=== PATIENT | male | born 1955 | race African-American/Black ===

== ENCOUNTER 2022-06-09 13:36 | Emergency (ER) | payer OTHER ==
[~2022-06-09] VITALS: Ht 188 cm; Wt 123.0 kg
[2022-06-09 14:31] LABS: Basophils # (auto) 0.1 10 ^3/uL (0-0.2); Basophils % (auto) 0.7 % (0.0-2.0); Eosinophils # (auto) 0 10 ^3/uL (0-0.8); Eosinophils % (auto) 0.1 % (0.0-7.0); Hematocrit 40.4 % (41.0-53.0); Hemoglobin 13.7 g/dL (13.5-17.5); Lymphocytes # (auto) 0.8 10 ^3/uL (0.4-5.4); Lymphocytes % (auto) 6.3 % (10.0-50.0); Mean Corpuscular Hemoglobin 32.3 pg (28.0-32.0); Mean Corpuscular Volume 95.1 fL (80.0-100.0); Monocytes # (auto) 0.7 10 ^3/uL (0-1.3); Monocytes % (auto) 5.2 % (0.0-12.0); Neutrophils # (auto) 11.6 10 ^3/uL (1.6-8.6); Neutrophils % (auto) 87.7 % (37.0-80.0); Nucleated Red Blood Cells % 0.1 %; Red Blood Cells 4.25 10^6/uL (4.5-5.90); Red Cell Distribution Width 13.7 % (11.8-14.3); White Blood Cell 13.3 10^3/uL (4.4-10.8)
[2022-06-09 14:44] LABS: Albumin 2.9 g/dL (3.4-5.0); BUN/Creatinine Ratio 12.1; Calcium 8.3 mg/dL (8.5-10.1); Potassium 3.9 mmol/L (3.5-5.1)
[2022-06-09 14:47] LABS: Total Protein 7.3 g/dL (6.4-8.2)
[2022-06-09] MEDS ORDERED: MORPHINE SULFATE 4 MG/ML SYR/VIAL IV ONE (17:45)
[2022-06-09] MEDS ORDERED: METOCLOPRAMIDE HCL 5MG/ml INJ 2ml VIAL IV ONE (17:45)
[2022-06-09] MEDS ORDERED: SODIUM CHLORIDE 0.9% 1,000 ML IV ONE (17:45)
[2022-06-09 18:43] LABS: Magnesium 2.6 mg/dL (1.6-2.6)
[2022-06-09 21:24] LABS: Urine Bacteria MOD /hpf (None Seen); Urine Blood Negative /uL (Negative); Urine Specific Gravity 1.017 (1.001-1.035); Urine WBC 32 /hpf (0 - 3)
[2022-06-09] MEDS ORDERED: ACETAMINOPHEN 325 MG TAB PO ONE (21:45)
[2022-06-10] MEDS ORDERED: PIPERACILLIN-TAZOB 3.375GM 100 ML IV ONE (00:45)
[2022-06-10 05:51] VITALS: BP 125/72
== END 2022-06-10 05:51 | disposition short-term general hospital (02) ==
LOC: EDBD 13:36 → ER 13:36
DX: R10.30 Lower abdominal pain, unspecified (principal); G12.21 Amyotrophic lateral sclerosis; N18.9 Chronic kidney disease, unspecified; Z20.822 Contact with and (suspected) exposure to COVID-19
CPT/HCPCS: 36415; 71045; 74176; 80053; 81001; 83605; 83690; 83735; 84484; 85025; 87040; 87426; 93005; 96361; 96365; 96366; 96375; 99285; J2270; J2765; J7030; J2543

== ENCOUNTER → 2023-12-15 | Emergency (ER) | payer OTHER ==
[~2023-12-15] VITALS: Ht 188 cm; Wt 127.0 kg
[2023-12-15 07:30] VITALS: PULSE 56; O2SAT 93
[2023-12-15 08:09] LABS: Urine Bacteria MOD /hpf (None Seen); Urine Blood 3+ /uL (Negative); Urine Clarity Ex.Turbid (Clear); Urine Color Colorless (Yellow); Urine Mucus FEW (None Seen); Urine Protein, UAD 1+ (Negative); Urine Specific Gravity 1.014 (1.001-1.035); Urine Urobilinogen Normal (Negative); Urine WBC 239 /hpf (0 - 3)
[2023-12-15 13:53] LABS: Basophils # (auto) 0 10 ^3/uL (0-0.2); Basophils % (auto) 0.4 % (0.0-2.0); Eosinophils # (auto) 0 10 ^3/uL (0-0.8); Eosinophils % (auto) 0.4 % (0.0-7.0); Hematocrit 45.3 % (41.0-53.0); Hemoglobin 15.1 g/dL (13.5-17.5); Lymphocytes # (auto) 1.7 10 ^3/uL (0.4-5.4); Lymphocytes % (auto) 15.8 % (10.0-50.0); Mean Corpuscular Hemoglobin 31.9 pg (28.0-32.0); Mean Corpuscular Hgb Conc. 33.4 g/dL (32.0-36.0); Mean Corpuscular Volume 95.4 fL (80.0-100.0); Monocytes # (auto) 0.7 10 ^3/uL (0-1.3); Monocytes % (auto) 6.4 % (0.0-12.0); Neutrophils # (auto) 8.3 10 ^3/uL (1.6-8.6); Red Blood Cells 4.75 10^6/uL (4.5-5.90); Red Cell Distribution Width 15.1 % (11.8-14.3); White Blood Cell 10.7 10^3/uL (4.4-10.8)
[2023-12-15 14:12] LABS: Alanine Aminotransferase 16 U/L (7-40); Albumin 4.3 g/dL (3.2-4.8); Alkaline Phosphatase 71 U/L (46-116); Anion Gap 7 (5-15); Aspartate Aminotransferase 18 U/L (13-40); BUN/Creatinine Ratio 17.3 (10.0-20.0); Bilirubin, Total 0.5 mg/dL (0.2-1.0); Blood Urea Nitrogen 14 mg/dL (9-23); Calcium 9.2 mg/dL (8.7-10.4); Carbon Dioxide 27 mmol/L (20-30); Chloride 110 mmol/L (98-107); Glucose 93 mg/dL (74-106); Potassium 3.8 mmol/L (3.5-5.1); Sodium 144 mmol/L (136-145)
[2023-12-15 14:13] LABS: Total Protein 7.1 g/dL (5.7-8.2)
[2023-12-15] MEDS: cefTRIAXone 1GM/50ML D5W 50 ML IV ONE (14:18)
[2023-12-15 16:08] VITALS: BP 154/87; PULSE 53; RESP 19; TEMP 98.6; O2SAT 93
== END | disposition short-term general hospital (02) ==
LOC: ER 04:28 → EDBD 04:28 → EDUNIT# 04:28
DX: R33.9 Retention of urine, unspecified (principal); R31.0 Gross hematuria; Z46.6 Encounter for fitting and adjustment of urinary device
CPT/HCPCS: 36415; 51702; 80053; 81001; 85025; 96365; 99285; J0696